=== PATIENT | male | born 1960 | race Caucasian/White ===

== ENCOUNTER 2016-05-28 07:40 | Emergency (ER) | payer BC ==
--- NOTE | 2016-05-28 07:51 | Emergency Department Record ---
History of Present Illness - General Chief Complaint: Ankle/Foot Injury Stated Complaint: THINK I BROKE MY TOE Time Seen by Provider: 05/28/16 07:50 Source: Patient Mode of Arrival: Ambulatory Limitations: No limitations - History of Present Illness Initial Comments: The patient is here due to L 2nd toe pain. He was walking barefoot last evening and kicked an object injuring the toe. He denies any foot pain and is able to walk with a limp. Complaint: Foot injury Onset/Timin -: Hour(s) Type of Injury: Blunt Place: Home Severity: Mild Improves With: Nothing Worsens With: Nothing Context: Walking - Related Data Home Medications Medication Instructions Recorded Confirmed Last Taken Hydrocodone/Acetaminophen [[place] 1 tab PO Q6H PRN 05/28/16 05/28/16 05/28/16 7.5mg/325mg] Omeprazole [Prilosec] 20 mg PO DAILY 05/28/16 05/28/16 05/28/16 Allergies Allergy/AdvReac Type Severity Reaction Status Date / Time No Known Drug Allergies Allergy Verified 05/28/16 07:49 Travel Screening - Travel/Exposure Within Last 30 Days Have you traveled within the last 30 days?: No - Travel/Exposure Within Last Year Have you traveled outside the [place] in the last year?: No - Additonal Travel Details Have you been exposed to anyone with a communicable illness?: No - Travel Symptoms Symptom Screening: None Review of Systems Constitutional: Denies: Chills, Fever Eyes: Denies: Eye discharge ENT: Denies: Congestion Respiratory: Denies: Cough Past Medical History - SOCIAL HISTORY Smoking Status: Current every day smoker Alcohol Use: Occassional Drug Use: None - RESPIRATORY Hx Respiratory Disorders: No - NEURO Hx Neuro Disorders: No - GI Hx GI Disorders: Yes Hx Reflux: Yes - Hx Genitourinary Disorders: No - ENDOCRINE Hx Endocrine Disorders: No Hx Diabetes: No Hx Thyroid Disease: No - MUSCULOSKELETAL Hx Musculoskeletal Disorders: Yes Hx Arthritis: Yes - PSYCH Hx Psych Problems: No - HEMATOLOGY/ONCOLOGY Hx Hematology/Oncology Disorders: No Family Medical History Any Significant Family History?: No Physical Exam - General General Appearance: Alert, Oriented x3, Cooperative, No acute distress - Head Head exam: Atraumatic, Normocephalic - Eye Eye exam: Normal appearance, PERRL - Extremities Extremities exam: Normal inspection, Full ROM, Tenderness (There is mild L 2nd toe tenderness with possibly mild bruising. ) Course Vital Signs 05/28/16 07:43 Temperature 98.0 F Pulse Rate 93 H Respiratory 16 Rate Blood Pressure 144/91 Pulse Ox 97 - Reevaluation(s) Reevaluation #1: I did discuss the xray report with the patient. He is to leia tape the toes and use the post op shoe for a week. He is to see his PCP if not better next week. 05/28/16 08:32 Medical Decision Making - Data Complexity MDM Data: X-Ray Ordered and/or Reviewed - Radiology Data Radiology results: Report reviewed (L foot: Possible nondisplaced fx at base of middle phalynx 2nd toe.) Disposition Disposition: Discharge Clinical Impression: Fracture of phalanx of toe of left foot Qualifiers: Encounter type: initial encounter Toe: lesser toe Fracture type: closed Disposition: Home, Self-Care Condition: (1) Good Instructions: Toe Fracture (ED) Additional Instructions: Please keep the toes leia taped for comfort and use the post op shoe for a week. Take your home pain medicines as needed. Please see your PCP if not better in a week or return to the ER if worse. Forms: Patient Portal Access Time of Disposition: 08:34
== END 2016-05-28 08:43 | disposition home or self-care (01) ==
LOC: ER 07:40
DX: S92.505A Nondisplaced unspecified fracture of left lesser toe(s), initial encounter for closed fracture (principal); W22.8XXA Striking against or struck by other objects, initial encounter; Y92.009 Unspecified place in unspecified non-institutional (private) residence as the place of occurrence of the external cause
CPT/HCPCS: 99283